=== PATIENT | male | born 2000 | race African-American/Black ===

== ENCOUNTER 2023-03-16 13:41 | Outpatient (REF) | payer MEDICAID, SELFPAY ==
--- NOTE | ~2023-03-16 | XR_ITS ---
EXAMINATION: XR LUMBOSACRAL SPINE CLINICAL INFORMATION: Lower back pain of 2 weeks' duration. COMPARISON: None available. TECHNIQUE: AP and lateral views of the lumbar spine and lateral view of the lumbosacral junction. FINDINGS: Vertebral body heights are normal. There is a mild to moderate thoracolumbar levoscoliosis. The lumbar disc spaces are well-maintained. No acute fracture or spondylolisthesis is seen. The posterior elements are intact. The paravertebral soft tissues are unremarkable. XR/XR lumbar spine 2-3V IMPRESSION: 1. There is a mild to moderate thoracolumbar levoscoliosis. 2. The lumbar disc spaces are well-maintained. 3. No acute fracture or spondylolisthesis is seen.
== END 2023-03-16 13:42 | disposition home or self-care (01) ==
LOC: HO.HHCX 13:41
PROVIDERS: Visit Provider Emergency Medicine
DX: M54.50 Low back pain, unspecified (principal)
CPT/HCPCS: 72100

== ENCOUNTER 2023-12-27 10:11 | Outpatient (REF) | payer MEDICAID, SELFPAY ==
--- NOTE | ~2023-12-27 | US_ITS ---
EXAMINATION: US RETROPERITONEAL LIMITED (RENAL ONLY) CLINICAL INFORMATION: Congenital condition. Monitor for cysts. COMPARISON: Ultrasound abdomen complete 06/19/2019. Renal ultrasound 12/01/2016. TECHNIQUE: Real-time imaging of the kidneys. FINDINGS: RIGHT KIDNEY: 13.2 x 5.8 x 6.2 cm (SAG x AP x TRV). The kidney is normal in size, contour, and echogenicity. Renal cortical thickness is normal. No renal calculi or focal parenchymal lesions. Question mild hydronephrosis. LEFT KIDNEY: 12.7 x 5.9 x 5.6 cm (SAG x AP x TRV). The kidney is normal in size, contour, and echogenicity. Renal cortical thickness is normal. No renal calculi or focal parenchymal lesions. Question mild hydronephrosis. US/US renal BI IMPRESSION: No renal cystic disease. Question mild bilateral hydronephrosis.
== END 2023-12-27 10:12 | disposition home or self-care (01) ==
LOC: HO.US 10:11
PROVIDERS: PCP Nurse Practitioner Primary Care; Visit Provider Nurse Practitioner Primary Care
DX: Q87.83 Bardet-Biedl syndrome (principal)
CPT/HCPCS: 76775

== ENCOUNTER 2024-03-03 14:51 | Outpatient (REF) | payer MEDICAID, SELFPAY ==
[2024-03-03 17:01] LABS: Anion Gap 20 (12-20); Blood Urea Nitrogen 14 mg/dL (9-16); Calcium 10.7 mg/dL (8.4-10.2); Carbon Dioxide 23 mmol/L (22-29); Chloride 98 mmol/L (96-108); Estimated Glomerular Filt Rate > 60; Glucose Random 213 mg/dL (60-115); Potassium 4.2 mmol/L (3.3-5.1); Sodium 137 mmol/L (135-145)
[2024-03-03 17:03] LABS: Creatinine Urine 50.09 mg/dL; Microalbumin Urine < 5.0 mg/L
== END 2024-03-03 14:52 | disposition home or self-care (01) ==
LOC: HO.HHCL 14:51
PROVIDERS: Visit Provider Nurse Practitioner Primary Care
DX: Q87.83 Bardet-Biedl syndrome (principal); I10 Essential (primary) hypertension
CPT/HCPCS: 36415; 80048; 82043; 82570

== ENCOUNTER 2024-05-08 15:05 | Outpatient (REF) | payer MEDICAID, SELFPAY ==
--- NOTE | ~2024-05-08 | CT_ITS ---
STUDY PERFORMED: CTA ABDOMEN WITHOUT AND WITH CONTRAST HISTORY: Past medical history of Bardet-Biedl syndrome DESCRIPTION: Routine abdomen CTA protocol with contrast was performed. 80 mL of Omnipaque 350 was administered. 3D POSTPROCESSING: Multiple 3-D angiographic images were processed from the initial data set by the manager imaging at the modality workstation under concurrent physician supervision. DOSE LOWERING TECHNIQUES: This CT examination was performed using dose optimization techniques as appropriate, variously including the following: - Automated exposure control - Adjustment of mA and/or kV according to patient size (this includes techniques or standardized protocols for targeted exams where dose is matched to indication/reason for exam; i.e. extremities or head) - Use of iterative reconstruction technique DLP: 318 mGycm. COMPARISON: Renal ultrasound from 12/27/2023 FINDINGS: VASCULAR: ABDOMINAL AORTA: Normal caliber and widely patent. No evidence of aneurysm or wall thickening. Visualized iliac arteries are normal in caliber and patent CELIOMESENTERIC ARTERIES: Celiac, superior mesenteric and inferior mesenteric arteries are patent. No evidence of aneurysm, vessel irregularity. RENAL ARTERIES: There is a single left renal artery and 2 right renal arteries which are widely patent and normal caliber. No evidence of aneurysm or vessel irregularity.. NONVASCULAR: Lung Bases: The visualized lung bases are unremarkable. Liver, Gallbladder and Biliary Tree: Liver is decreased in density consistent with severe hepatic steatosis. The gallbladder is unremarkable with no evidence of radiopaque gallstones, gallbladder wall thickening, or obvious pericholecystic inflammatory changes. Pancreas: Unremarkable. Spleen: Unremarkable. Adrenal Glands: Unremarkable. Kidneys and Ureters: The kidneys are normal in size, shape, and attenuation. No hydronephrosis, hydroureter, or calculi seen. No perinephric stranding. No renal cysts are seen. Gastrointestinal Tract: The visualized small and large bowel are unremarkable. The appendix is unremarkable. Abdominal Wall: No significant hernia is appreciated. Lymph Nodes: Normal. Osseous Structures: Unremarkable. CT/CT angio abdomen IMPRESSION: 1. Normal CTA of the abdomen. No evidence of aneurysm or vessel irregularity. 2. Severe hepatic steatosis.
[2024-05-08] MEDS: iohexoL 350 MG/ML 100 ML INFUS..BTL 80 ML IV (16:04)
== END 2024-05-08 15:06 | disposition home or self-care (01) ==
LOC: HO.CT 15:05
PROVIDERS: PCP Nurse Practitioner Primary Care; Visit Provider Nurse Practitioner Primary Care
DX: Q87.83 Bardet-Biedl syndrome (principal)
CPT/HCPCS: 74175; Q9967

== ENCOUNTER 2024-05-30 15:59 | Outpatient (REF) | payer MEDICAID, SELFPAY ==
[2024-05-30 16:14] LABS: Appearance Urine Clear; Color Urine Yellow; Glucose Urine UA >=1000 mg/dL (Negative); Leukocyte Esterase Urine Small (1+) (Negative); Nitrite Urine Negative (Negative); Specific Gravity - Urine >= 1.030 (1.005-1.025); UMIC TRIGGER UA YES; Urine Blood Negative (Negative); Urine Ketones Trace mg/dL (Negative); Urine Protein Negative (Neg-Trace)
[2024-05-30 16:17] LABS: Bacteria Urine None Seen (None Seen); Hyaline Casts Urine 0-2 /LPF (0-2); RBC Urine 0-2 /HPF (0-2); Squamous Epithelial Cell Urine 0-2 /HPF (0-2)
== END 2024-05-30 16:00 | disposition home or self-care (01) ==
LOC: HO.HHCLNP 15:59
PROVIDERS: Visit Provider Nurse Practitioner Primary Care
DX: M54.50 Low back pain, unspecified (principal)
CPT/HCPCS: 81001

== ENCOUNTER 2025-04-28 23:48 | Emergency (ER) | payer MEDICAID, SELFPAY ==
[2025-04-28 23:55] VITALS: BP 153/85; PULSE 90; RESP 16; TEMP 36.4; O2SAT 94; BMI 41.6
--- OUTSIDE RECORDS SUMMARY | 2025-04-29 01:16 | XMS_ITS | Encounter Summary ---
Author Organization Formerly [facility] Address [address] [place] [id number] Phone Care Team Providers Care Research Director Name Role Phone Pcp, Unknown Primary Care Provider Unavailsalvador e Khushboo Choudhury March DDS Unavailable [phone] Encounter Details Date Type Department Care Team (Late st Contact Info) Description 11/16/2024 Procedure Pass [facility] [address] [place] [id number] Social History Tobacco Use Types Packs/Day Years Used Date Smoking Tobacco: Never Smokeless Tobacco: Never Alcohol Use Standard Drinks/Week Comments Never 0 (1 standard drink = 0.6 oz pur e alcohol) Education Answer Date Recorded Are you interested in more education? Not on maximilian e 02/25/2024 Are you concerned about learning? Not on file 02/25/2024 No 02/25/2024 No 02/25/2024 Digital Access Answer Date Recorded No 02/25/2024 No 02/25/2024 Reliable internet access at home? Not on file 02/25/2024 Device with a working camera? Not on file Sex and Gender Information Value Date Recorded Sex Assigned at Not on file Legal Sex Male 9:10 AM EDT Gender Identity Not on file Sexual Orientation Not on file documented as of this encounter Plan of Treatment Not on file documented as of this encounter Visit Diagnoses Not on filedocumented in this encounter Care Teams Research Director Relationship Specialty Start Date End Date Pcp, Unknown PCP - General 02/24/24 Khushboo Choudhury March, DDS [address] [place] [phone] [email or web address] councilor 02/25/24 documented as of this encounter Additional Source Comments The information contained in this document represents components of the legal health record. It is not the complete legal health record.[facility]ly [facility]
--- OUTSIDE RECORDS SUMMARY | 2025-04-29 01:16 | XMS_ITS | Clinical Summary ---
Author Organization [address] [facility] Address [address] [place] [address] Phone Care Team Providers Care Waste Transportation Technician Name Role Phone Lidia Corona NP Primary Care Provider [phone] Allergies No known active allergies Encounters Date Type Department Care Team Description 03/12/2025 2:45 PM EDT Consult Orthopedic Surgery [place] [address] [phone] Jose Guadalupe Archuleta DPM Ingrowing nail (Primary Dx); Type 2 diabetes mellitus with other specified complication (CMS/HCC V24, CMS/HCC V28) from Last 3 Months Social History Tobacco Use Types Packs/Day Years Used Date Smoking Tobacco: Never Smokeless Tobacco: Never Sex and Gender Information Value Date Recorded Sex Assigned at Not on file Legal Sex Male 2:33 PM EST Gender Identity Not on file Sexual Orientation Not on file Obstetrics History Plan of Treatment Upcoming Encounters Date Type Department Care Team ([facility] st Contact Info) Description 06/18/2025 1:15 PM EDT Office Visit Orthopedic [place] [phone] [phone] Jose Guadalupe Archuleta DPM [address] [phone] Health Maintenance Due Date Last Done Comments Diabetes: Annual GFR (Glomerular Filtration Rate) 2002 Diabetes: Annual Foot Exam 2012 Diabetes: Annual Retina Eye Exam 2012 COVID-19 Vaccine ( season) 2024 10/19/2021, 02/26/2021, 01/29/2021 Depression Screening 10/11/2024 Cholesterol Screening (Lipid Panel) 12/28/2024 Diabetes: Annual Urine Albumin-Creatinine Ratio (uACR) 12/28/2024 HIV Screening 12/28/2024 Hepatitis C Screening 12/28/2024 Social Influencers of Health Screening 12/28/2024 Hypertension/CHF/CAD Annual BMP Blood Test 03/12/2025 Diabetes: Blood Sugar Control Test (HGBA1C) 06/07/2025 12/08/2024 Influenza Vaccine (#1) 2025 , 09/15/2018, 09/08/2017, Additional history exists DTaP,Tdap,and Td Vaccines (8 - Td or Tdap) 08/30/2034 08/30/2024, 12/29/2013, 06/28/2006, Additional history exists Hepatitis B Vaccines Completed 03/30/2003, 2002, 2002 HIB Vaccines Completed 10/17/2003, 12/10, 2002, Additional history exists IPV Vaccines Completed 06/28/2006, 06/12, 2002, Additional history exists MMR Vaccines Completed 06/28/2006, 07/04/2003 Varicella Vaccines Completed 12/23/2012, 06/03/2004 HPV Vaccines Completed 06/01/2014, 02/09, 12/29/2013 Hepatitis A Vaccines Completed 09/15/2018, 08/22/20 Meningococcal ACWY Vaccine Completed 09/15/2018, Pneumococcal Vaccine: Pediatrics (0 to 5 Years) and At-Risk Patients (6 to 49 Years) Completed 07/16/2022, 06/16/2022, 2002, Additional history exists Meningococcal B Vaccine Completed 01/22/20, 07/16/2022, 06/16/2022 RSV Immunization Patients Under 20 months Aged Out No longer eligible based on patient's age to complete this topic Insurance MEDICAID - [place] Care Teams Waste Transportation Technician Relationship Specialty Start Date End Date Lidia Corona NP [address] [place] [phone] PCP - General 12/28/24
--- OUTSIDE RECORDS SUMMARY | 2025-04-29 01:16 | XMS_ITS | Encounter Summary ---
Author Organization [facility] Address [address] [place] [address] [address] [place] [address] Care Team Providers Care Supervisor Customer Services Name Role Phone Lidia Corona Primary Care Provider [phone] Reason for Visit * Reason Onset Date Comments Med Refill 11/08/2023 Encounter Details Date Type Department Care Team (Late st Contact Info) Description 11/08/2023 Telephone [facility] [address] [place], [place] [phone] Lidia Corona ANP [address] [place] [address] Med Refill Social History Tobacco Use Types Packs/Day Years Used Date Smoking Tobacco: Never Smokeless Tobacco: Never Sex and Gender Information Value Date Recorded Sex Assigned at Male 08/10/2022 10:17 AM EDT Legal Sex Male 10:17 AM EDT Gender Identity Male 08/10/2022 10:17 AM EDT Sexual Orientation Straight 08/10/2022 10 :17 AM EDT documented as of this encounter Miscellaneous Notes * Telephone Encounter - Shivani Alejandre LPN - 11/08/2023 12:49 PM EST Medication was sent to [facility] on 07/27/23 #[phone] with 1 refill. * Telephone Encounter - Zita Lee - 11/08/2023 12:35 PM EST TC from pt requesting medication refill. Medications needing refill : lisinopril-hydroCHLOROthiazide 10-12.5 MG tablet To be sent to: [facility]-[address] - [address] [place], [place] [address] documented in this encounter Plan of Treatment Upcoming Encounters Date Type Department Care Team (Late st Contact Info) Description 06/22/2025 1:45 PM EDT Office Visit [facility] [address] [place] [address] Lidia Corona ANP [address] [place] [address] documented as of this encounter Visit Diagnoses Not on filedocumented in this encounter Care Teams Supervisor Customer Services Relationship Specialty Start Date End Date Lidia Corona ANP [address] [place] [id number] PCP - General Family Medicine 08/05/23 documented as of this encounter
--- OUTSIDE RECORDS SUMMARY | 2025-04-29 01:16 | XMS_ITS | Clinical Summary ---
Author Organization [facility] Address [address] [place] [address] Phone Care Team Providers Care Crossing Flagman Name Role Phone Anthony Brewer MD Primary Care Provider [phone] Mahnaz Palencia Unavailable [phone] [place] [address] Unavailable [phone] Medications albuterol (ProAir RespiClick) 90 mcg/act breath-activate d inhaler Dose Amount: 2 puff, INH, Q4hr, PRN as needed for shortness of breath or wheezing, Entered: 03/18/16 11:39:25 EDT 6 Active lisinopriL-hydr ochlorothiazide 10-12.5 mg tablet tab, PO, daily, Entered: 02/24/18 9:30:14 EDT 8 Active insulin degludec (Tresiba FlexTouch U-100) 100 unit/mL (3 mL) pen Dose: 50 unit, Subcutaneous, daily, Special Instructions: at night, Entered: 02/18/18 11:34:06 EDT 8 Active omega-3 acid ethyl esters (Lovaza) 1 gram capsule Dose: 2,000 mg, Dose Amount: 2 cap, PO, daily, Entered: 03/20/16 8:31:35 EDT 6 Active polyethylene glycol 3350 (MIRALAX ORAL) Dose: 17 g, PO, daily, Entered: 01/23/16 13:18:50 EDT 6 Active Social History Tobacco Use Types Packs/Day Years Used Date Smoking Tobacco: Never Assessed Sex and Gender Information Value Date Recorded Sex Assigned at Not on file Legal Sex Male 10:15 PM EDT Gender Identity Not on file Sexual Orientation Not on file Last Filed Vital Signs Vital Sign Reading Time Taken Comments Blood Pressure - - Pulse - - Temperature - - Respiratory Rate - - Oxygen Saturation - - Inhaled Oxygen Concentration - - Weight 133 kg (292 lb 12.3 oz) 11/30/2018 2:24 P M EST Height 173.3 cm (5' 8.23 ) 08/02/2018 12:47 PM E DT Body Mass Index - - Plan of Treatment Not on file Care Teams Crossing Flagman Relationship Specialty Start Date End Date Anthony Brewer MD [address] [place] [address] PCP - General 06/01/18 Mahnaz Palencia [address] [place] [address] PCP - Clinical PCP 01/24/16 [facility] [address] [place] [address] PCP - Insurance PCP 02/02/18
[2025-04-29 02:28] LABS: MANUAL DIFF FLAG NO
[2025-04-29 02:29] LABS: Hematocrit 43.8 % (42.0-52.0); Hemoglobin 14.7 g/dl (14.0-18.0); Imm Gran Abs Auto 0.01 X10*3/uL (0.00-0.03); Imm Gran Pct Auto 0.2 % (0.0-0.4); Lymphocytes Absolute Auto 1.6 X10*3/uL (1.2-4.9); Mean Corpuscular HGB Conc 33.6 g/dl (31.0-36.0); Mean Corpuscular Hemoglobin 27.5 pg (27.0-33.0); Mean Corpuscular Volume 82.0 fL (80.0-98.0); NRBC Abs Auto 0.000 X10*3/uL (0.0-0.012); NRBC Pct Auto 0.0 /100WBC (0.0-0.2); Platelet Count 260 X10*3/uL (160-400); Red Blood Count 5.34 X10*6/uL (4.60-5.80); White Blood Count 6.0 X10*3/uL (4.8-10.8)
[2025-04-29 02:36] VITALS: BP 123/62; PULSE 99; RESP 16; TEMP 36.7; O2SAT 93
[2025-04-29 02:47] LABS: Alanine Aminotransferase 120 U/L (0-40); Albumin Level 4.5 g/dL (3.5-5.0); Alkaline Phosphatase 73 U/L (39-117); Anion Gap 16 (12-20); Aspartate Amino Transferase 47 U/L (5-37); Blood Urea Nitrogen 13 mg/dL (9-16); Calcium 9.4 mg/dL (8.4-10.2); Carbon Dioxide 26 mmol/L (22-29); Chloride 102 mmol/L (96-108); Creatinine Clr Calc Pharmacy 221.0; Estimated Glomerular Filt Rate > 60; Lipase 26 U/L (8-78); Potassium 4.0 mmol/L (3.3-5.1); Sodium 140 mmol/L (135-145); Total Protein 7.0 g/dL (6.5-8.0)
--- NOTE | 2025-04-29 03:44 | ED.DIZZY ---
HPI - Dizziness General Chief Complaint: Dizziness Stated Complaint: dizzy/ vomiting Time Seen by Provider: 04/29/25 03:43 Source: patient and family (Mother) Mode of arrival: ambulatory Limitations: no limitations History of Present Illness ED Provider: Dr. Deon Brush HPI Narrative: 24-year-old male with a history of special needs, diabetes mellitus, hypertension who presents emergency department for evaluation of sudden onset of room spinning dizziness. Patient is watching television at 22:00 hours when he had a sudden onset of room spinning he states that the dizziness resolves if he lies still. The dizziness was associated with nausea two episodes of vomiting. This is 1st episode of dizziness. He denied chest pain, shortness of breath, abdominal pain, weakness, numbness, change in his vision Related Data Previous Rx's ?Medication ?Instructions ?Recorded meclizine 25 mg tablet (Dramamine 25 mg PO TID PRN dizziness #20 tabs 04/29/25 Less Drowsy) ondansetron 4 mg disintegrating 4 mg PO Q6-8H PRN nausea and 04/29/25 tablet vomiting #14 tabs Allergies Allergy/AdvReac Type Severity Reaction Status Date / Time No Known Allergies Allergy Verified 04/28/25 23:57 Review of Systems Review of Systems: Yes all other systems are reviewed and are negative [facility] Past Medical History [facility] Narrative: Social history: He denies tobacco, alcohol and drug use Social History Social History Smoked in Last 30 Days: No Use of substances other than those prescribed or required for medical reasons: No Advance Directives: No Advance Directives Information Provided: Yes Physical Exam Vital Signs: Vital Signs: Last Vital Signs Temp 98.3 F 04/29/25 04:50 Pulse 90 04/29/25 04:50 Resp 16 04/29/25 04:50 BP 131/72 04/29/25 04:50 Pulse Ox 95 04/29/25 04:50 O2 Del Method Room Air 04/29/25 04:50 BMI result Body Mass Index 41.6 vital signs were normal Exam: General: Awake, alert in no distress Head: Normocephalic, atraumatic EENT: PERRL, patient has strabismus with a in his left eye deviating laterally, positive nystagmus Lids normal, sclera normal, conjunctiva normal, nose normal , ears normal, throat without erythema or exudates Neck: Supple, no adenopathy Lung: breath sounds symmetric, no wheezing, rales or rhonchi Chest: symmetric movement, nontender Heart: regular rate and rhythm, normal S1, S2 no murmurs or rubs Abdomen: soft, non-tender, nondistended, normal bowel sounds Back: no vertebral tenderness, no CVAT Extremities: no deformities, moves all extremities symmetrically Neuro: General: Awake, alert, oriented, normal speech Cranial nerves: Cranial nerves intact Strength: Moves all extremities symmetrically, strength 5/5 Cerebellar: Good lerzqj-jf-swpu-to-finger, good rapid finger movement, normal heel to deng Psych: Pleasant, cooperative Medications Administered Discontinued Medications Generic Name Dose Route Start Last Admin Trade Name Freq PRN Reason Stop Dose Admin Meclizine HCl 25 mg 04/29/25 03:56 04/29/25 04:06 Meclizine Hcl 25 Mg Tablet PO 04/29/25 03:57 25 mg ONCE STA Administration Ondansetron HCl 4 mg 04/29/25 03:56 04/29/25 04:06 Ondansetron Odt 4 Mg Tab.Rapdis TRANSLINGU 04/29/25 03:57 4 mg ONCE STA Administration Medical Decision Making Medical Decision Making MDM Narrative: 24-year-old male with a history of special needs, diabetes mellitus, hypertension who presents emergency department for evaluation of sudden onset of room spinning dizziness. Patient is watching television at 22:00 hours when he had a sudden onset of room spinning he states that the dizziness resolves if he lies still. The dizziness was associated with nausea with 2 episodes of vomiting. This is 1st episode of dizziness. He denied chest pain, shortness of breath, abdominal pain, weakness, numbness, change in his vision. Vital signs were normal. Physical examination revealed nystagmus and dizziness with position change. Neurologic exam was nonfocal. Differential diagnosis: Includes but is not limited to stroke, benign positional vertigo, anemia, electrolyte abnormalities Course: my independent interpretation patient's laboratory evaluation is as follows: CBC was normal. Glucose elevated 195. AST and ALT elevated 47 and .120 given the patient's presentation symptoms and physical exam, patient most likely has benign positional vertigo. The patient is treated with meclizine 25 mg orally and Zofran 4 mg ODT I did discuss this diagnosis and treatment with the patient and the patient's mother. The patient does have diabetes and had an elevated glucose which was not significant. Patient did have mild elevations in his AST and ALT of unclear significance or cause. I did discuss this with the patient's mother advised her to make a follow-up appointment for her son did get repeat liver tests in 2-4 weeks and for possible further workup. the mother and patient was given printed and verbal instructions and the patient was discharged home in the care of his mother. Admission/Observation Consideration of admission/observation: Escalation of care including admission/observation considered ( Yes) Lab Data MDM Lab Attestation statement: I reviewed the patient's lab results. 04/29/25 02:25 04/29/25 02:25 Labs: Lab Results 04/29/25 Range/Units 02:25 WBC 6.0 (4.8-10.8) X10*3/uL RBC 5.34 (4.60-5.80) X10*6/uL Hgb 14.7 (14.0-18.0) g/dl Hct 43.8 (42.0-52.0) % MCV 82.0 (80.0-98.0) fL MCH 27.5 (27.0-33.0) pg MCHC 33.6 (31.0-36.0) g/dl RDW 12.5 (11.0-16.0) % Plt Count 260 (160-400) X10*3/uL MPV 9.4 (9.4-12.4) fL Immature Gran % (Auto) 0.2 (0.0-0.4) % Neut % (Auto) 64.8 (45-73) % Lymph % (Auto) 26.2 (20-40) % [place] % (Auto) 6.0 (2-11) % Eos % (Auto) 2.3 (0-4) % Baso % (Auto) 0.5 (0-2) % Lymph # (Auto) 1.6 (1.2-4.9) X10*3/uL [place] # (Auto) 0.4 (0.1-1.2) X10*3/uL Eos # (Auto) 0.1 (0.0-0.4) X10*3/uL Baso # (Auto) 0.0 (0.0-0.2) X10*3/uL Abs Immat Gran (auto) 0.01 (0.00-0.03) X10*3/uL Absolute Neuts (auto) 3.9 (2.0-8.3) x10*3/uL Absolute Nucleated RBC 0.000 (0.0-0.012) X10*3/uL Nucleated RBC % (auto) 0.0 (0.0-0.2) /100WBC Sodium 140 (135-145) mmol/L Potassium 4.0 (3.3-5.1) mmol/L Chloride 102 (96-108) mmol/L Carbon Dioxide 26 (22-29) mmol/L Anion Gap 16 (12-20) BUN 13 (9-16) mg/dL Creatinine 0.61 (0.5-1.4) mg/dL Estim Creat Clear Calc 221.0 Estimated GFR > 60 Random Glucose 195 H (60-115) mg/dL Calcium 9.4 D (8.4-10.2) mg/dL Total Bilirubin 0.2 (0.0-1.0) mg/dL AST 47 H (5-37) U/L ALT 120 H (0-40) U/L Alkaline Phosphatase 73 (39-117) U/L Total Protein 7.0 (6.5-8.0) g/dL Albumin 4.5 (3.5-5.0) g/dL Lipase 26 (8-78) U/L Independent Historian Clinical information obtained from an independent historian. History obtained from or confirmed by: Parent ( mother) Chronic Conditions Patient?s care impacted by: Diabetes Discharge Plan Discharge Clinical Impression: Benign paroxysmal positional vertigo, Nausea & vomiting Patient Disposition: Home, Self-Care Instructions: Benign Paroxysmal Positional Vertigo (ED) Additional Instructions: You had a complete blood count (CBC) and a comprehensive metabolic panel (CMP) Your glucose was elevated at 195. You had 2 liver tests which were elevated, AST 47 (normal range 5-37) and ALT 120 (normal range 47 to 120). I want you to follow up with your doctor in 2-4 weeks to have repeat test to recheck your liver tests. Your dizziness nausea and vomiting is due to benign positional vertigo (dizziness caused by the balance mechanism in your inner ear) This can last several days to several weeks. Take meclizine 25 mg pills, 1 pill 3 times a day for the next 3 days for dizziness then as needed for dizziness. ?This medication will make you sleepy. ?Do not drive or work while taking this medication. Take Zofran ODT 4 mg pills, 1 pill dissolved in your mouth every 8 hours as needed for nausea and vomiting. Continue taking medications as prescribed by your providers Follow-up with your doctor in 2 days. Please return to the emergency department if your symptoms get worse or if you develop any symptoms that are concerning to you. Prescriptions: New meclizine [Dramamine Less Drowsy] 25 mg tablet 25 mg PO TID PRN (Reason: dizziness) Qty: 20 0RF ondansetron 4 mg tablet,disintegrating 4 mg PO Q6-8H PRN (Reason: nausea and vomiting) Qty: 14 0RF Interventions: ED Discharge Assessment Last Done: 04/29/25 04:50 Discharge Date/Time: 04/29/25 04:51 Print Language: Iraqi
[2025-04-29 04:50] VITALS: BP 131/72; PULSE 90; RESP 16; TEMP 36.8; O2SAT 95
== END 2025-04-29 04:51 | disposition home or self-care (01) ==
PROVIDERS: Emergency Provider Emergency Medicine Emergency Medical Services; PCP Nurse Practitioner Primary Care
DX: H81.13 Benign paroxysmal vertigo, bilateral (principal); R11.2 Nausea with vomiting, unspecified
CPT/HCPCS: 36415; 80053; 83690; 85025; 99283; 99284

== ENCOUNTER 2025-06-22 16:10 | Outpatient (REF) | payer MEDICAID, SELFPAY ==
--- OUTSIDE RECORDS SUMMARY | 2025-06-22 13:45 | XMS_ITS | Encounter Summary ---
Author Organization [employer] Address [address] [facility] 7t [place] [address] Care Team Providers Care Heater Operator Helper Name Role Phone Lidia Corona Primary Care Provider [phone] Reason for Visit * Reason Comments Follow-up Encounter Details Date Type Department Care Team (Latest Contact Info) Description 06/22/2025 1:45 PM EDT Office Visit [facility] [address] [place], [place] [phone] Lidia Corona ANP [address] [place], [place] [phone] Hepatic steatosis (Primary Dx); Dietary counseling; Exercise counseling; Bardet-Biedl syndrome; Primary hypertension; Type 2 diabetes mellitus with hyperlipidemia (CMS/HCC) (CMS/HCC) Social History Tobacco Use Types Packs/Day Years Used Date Smoking Tobacco: Never Passive Smoke Exposure: Never Smokeless Tobacco: Never Alcohol Use Standard Drinks/Week Comments Never 0 (1 standard drink = 0.6 oz pur e alcohol) Depression Answer Date Recorded Patient Health Questionnaire-9 Score 11 12/08/2024 Patient Health Questionnaire-9 Score 11 12/08/2024 Last PHQ-9: Questionnaire Data Not on file 0 12/08/2024 Housing Stability Answer Date Recorded What is your housing situation today? I have patricia srinivasan 12/08/[address] you li ve. Do you have problems with any of the following? None of the above 12/08/2024 Food Insecurity Answer Date Recorded Within the past 12 months, y ou worried that your food would run out before you got money to buy more: Never True 12/08/2024 Within the past 12 months,th e food you bought just didn't last and you didn't have enough money to get more: Never True Transportation Answer Date Recorded In the past 12 months, has l ack of transportation kept you from medical appts, meetings, work or from getting things needed for daily living? No 12/08/2024 Utilities Answer Date Recorded In the past 12 months, has t he electric, gas, oil or water company threatened to shut off services in your home? No 12/08/2024 Depression Answer Date Recorded Patient Health Questionnaire-2 Score 0 12/08/2024 Internet Access Answer Date Recorded Internet Access Q1 Yes 12/08/2024 Internet Access Q2 Not on file 12/08/2024 Sex and Gender Information Value Date Recorded Sex Assigned at Male 08/10/2022 10:17 AM EDT Legal Sex Male 10:17 AM EDT Gender Identity Male 08/10/2022 10:17 AM EDT Sexual Orientation Straight 08/10/2022 10 :17 AM EDT documented as of this encounter Last Filed Vital Signs Vital Sign Reading Time Taken Comments Blood Pressure 120/60 06/22/2025 1:52 PM EDT Pulse 98 06/22/2025 1:52 PM EDT Temperature 36.7 C (98 F) 06/22/2025 1:52 PM EDT Respiratory Rate 20 06/22/2025 1:52 PM EDT Oxygen Saturation 98% 06/22/2025 1:52 PM EDT Inhaled Oxygen Concentration - - Weight 122 kg (268 lb 3.2 oz) 06/22/2025 1:52 PM EDT Height 174 cm (5' 8.5 ) 06/22/2025 1:52 PM EDT Body Mass Index 40.19 06/22/2025 1:52 PM EDT documented in this encounter Plan of Treatment Scheduled Orders Name Type Priority Associated Diagnoses Orde r Schedule Hepatic Function Panel Lab Routine Hepatic steatosis Expected: 06/22/2025 (Approximate), Expires: 06/22/2026 documented as of this encounter Procedures Procedure Name Priority Date/Time Associated Diagnosis Comments ALBUMIN, RANDOM URINE W/CREATININE Routine 06/22/2025 2:20 PM EDT Primary hypertension Type 2 diabetes mellitus with hyperlipidemia (CMS/HCC) (CMS/HCC) HEMOGLOBIN A1C Routine 06/22/2025 documented in this encounter Results * Albumin, Random Urine W/Creatinine (06/22/2025 2:20 PM EDT) Creatinine, Urine 24.34 mg/dL [facility] Microalbumin Urine <5.0 mg/L H [facility] Microalbum Creatinine Ratio Ur TNP <30 ug/mg cr [facility] Comment:Unable to calculate albumin/creatinine ratio due to lowmicroalbumin or creatinine result. Urine (Urine, Random) 06/22/2025 2:20 PM EDT 06/22/2025 4:11 PM EDT us Lidia ISABEL LAB URINE ORDERABLES Final Resul t [facility] [address] [place] [address] [phone] * (ABNORMAL) Hemoglobin A1c (06/22/2025) Hemoglobin A1c 10.0(H) Blood Venous blood specimen / Unknown Historical Provider LAB BLOOD ORDERABLES Liliya l Result documented in this encounter Visit Diagnoses Diagnosis Hepatic steatosis- Primary Other chronic nonalcoholic liver disease Dietary counseling Dietary surveillance and counseling Exercise counseling Bardet-Biedl syndrome Other specified congenital anomalies, so described Primary hypertension Unspecified essential hypertension Type 2 diabetes mellitus with hyperlipidemia (CMS/HCC) (CMS/HCC) documented in this encounter Additional Health Concerns Assessment Noted Time PHQ-9 Depression Total Score: 11 025 2:59 PM EST documented as of this encounter Care Teams Heater Operator Helper Relationship Specialty Start Date End Date Lidia Corona ANP [address] [place] [id number] PCP - General Family Medicine 08/05/23 documented as of this encounter
--- OUTSIDE RECORDS SUMMARY | 2025-06-22 17:50 | XMS_ITS | Encounter Summary ---
Author Organization [facility] Address [address] [facility] [address] [place] [phone] Phone Care Team Providers Care Security Intern Name Role Phone Pcp, Unknown Primary Care Provider Khushboo Dunlap March DDS Unavailable [phone] Encounter Details Date Type Department Care Team (Late st Contact Info) Description 01/18/2025 Procedure Pass [facility]PT [address] [place] [phone] Social History Tobacco Use Types Packs/Day Years [...] with a working camera? Not on file Intimate Partner Violence Answer Date R ecorded Are you denied basic needs s uch as food, clothing, or medical care? Patient unable to respond 01/18/2025 In the past 12 months have y ou been in a relationship with a person who hurts, threatens, or tries to control you? Patient unable to respond 01/18/2025 Are you denied basic needs s uch as food, clothing, or medical care? Patient unable to respond 01/18/2025 In the past 12 months have y ou been in a relationship with a person who hurts, threatens, or tries to control you? Patient unable to respond 01/18/2025 Sex and Gender Information Value Date Recorded Sex Assigned at Not on file Legal Sex Male 9:10 AM EDT Gender Identity Not on file Sexual Orientation Not on file documented as of this encounter Plan of Treatment Not on file documented as of this encounter Visit Diagnoses Not on filedocumented in this encounter Care Teams Security Intern Relationship Specialty Start Date End Date Pcp, Unknown PCP - General 02/24/24 Khushboo Choudhury March, DDS [address] [place] [phone] [email or web address] redeye gunner 02/25/24 documented as of this encounter Additional Source Comments The information contained in this document represents components of the legal health record. It is not the complete legal health record.[facility]
--- OUTSIDE RECORDS SUMMARY | 2025-06-22 17:50 | XMS_ITS | Clinical Summary ---
Author Organization [facility] Address [address] [place] [address] Phone Care Team Providers Care Latin American Studies Director Name Role Phone Lidia Corona NP Primary Care Provider [phone] Allergies No known active allergies Social History Tobacco Use Types Packs/Day Years Used Date Smoking Tobacco: Never Smokeless Tobacco: Never Sex and Gender Information Value Date Recorded Sex Assigned at Not on file Legal Sex Male 2:33 PM EST Gender Identity Not on file Sexual Orientation Not on file Obstetrics History Plan of Treatment Health Maintenance Due Date Last Done Comments Diabetes: Annual GFR (Glomerular Filtration Rate) 2002 Diabetes: Annual Foot Exam 2012 Diabetes: Annual Retina Eye Exam 2012 Depression Screening 10/11/2024 Cholesterol Screening (Lipid Panel) 12/28/2024 Diabetes: Annual Urine Albumin-Creatinine Ratio (uACR) 12/28/2024 HIV Screening 12/28/2024 Hepatitis C Screening 12/28/2024 Social Influencers of Health Screening 12/28/2024 Hypertension/CHF/CAD Annual BMP Blood Test 03/12/2025 Diabetes: Blood Sugar Control Test (HGBA1C) 06/07/2025 12/08/2024 COVID-19 Vaccine ( season) 2025 10/19/2021, 02/26/2021, 01/29/2021 Influenza Vaccine (#1) 2025 , 09/15/2018, 09/08/2017, [...] topic Insurance MEDICAID - [place] Care Teams Latin American Studies Director Relationship Specialty Start Date End Date Lidia Corona NP [address] [phone] PCP - General 12/28/24
--- OUTSIDE RECORDS SUMMARY | 2025-06-22 17:50 | XMS_ITS | Clinical Summary ---
Author Organization [facility] Address [address] [place] [address] Phone Care Team Providers Care Creel Selector Name Role Phone Anthony Brewer MD Primary Care Provider [phone] Mahnaz Palencia Unavailable [phone] [place] [address] Unavailable [phone] Medications albuterol (ProAir RespiClick) 90 mcg/act breath-activate [...] of Treatment Not on file Care Teams Creel Selector Relationship Specialty Start Date End Date Anthony Brewer MD [address] [place] [address] PCP - General 06/01/18 Mahnaz Palencia [address] [place] [address] PCP - Clinical PCP 01/24/16 [facility] [address] [place] [address] PCP - Insurance PCP 02/02/18
--- OUTSIDE RECORDS SUMMARY | 2025-06-22 17:50 | XMS_ITS | Clinical Summary ---
Author Organization [facility] Address [address] [facility] [address] [place] [address] Phone Care Team Providers Care Silverware Buffing Machine Operator Name Role Phone Pcp, Unknown Primary Care Provider Khushboo Dunlap March DDS Unavailable [phone] Allergies No known active allergies Medications alcohol (ALCOHOL PADS) PadM See Instructions, # 60 each, Refills 11, Tot. Refills 11, Maintenance, diabetes 2 times/daily, 10/14/23 14:29:00 EST, Compound, 174, cm, 09/17/23 15:18:00 EST, Height, 121, kg, 09/17/23 15:18:00 EST, Dry Weight 4 Active GLUCOSE BLOOD test strip USE DIRECTED TO TEST BLOOD SUGAR THREE TIMES A DAY 4 Active FREESTYLE PRECISION VIOLET STRIPS Strp strips USE DIRECTED TO TEST BLOOD SUGAR THREE TIMES A DAY 4 Active TRULICITY 0.75 mg/0.5 mL subcutaneous injection Active SYNJARDY 5-1,000 mg per tablet Take 1 tablet by mouth 2 (two) times a day with meals. Active FREESTYLE MICAH 2 SENSOR kit USE DIRECTED TO MONITOR BLOOD SUGARS, CHANGE EVERY 14 DAYS. 4 Active lisinopril-hydroC HLOROthiazide (PRINZIDE,ZESTORE TIC) 10-12.5 mg per tablet Take 1 tablet by mouth every morning. 4 Active vitamin E 45 mg (100 unit) Cap capsule Take 100 Units by mouth daily. Active chlorhexidine (PERIDEX) 0.12 % solution Use as directed 15 mL in the mouth or throat 2 (two) times a day. 120 mL Active oxyCODONE 5 MG immediate release tablet Take 1-2 tablets (5-10 mg total) by mouth every 4 (four) hours as needed for pain (specific location in comments). Partial fill ok 8 tablet Active Social History Tobacco Use Types Packs/Day Years Used Date Smoking Tobacco: Never Smokeless Tobacco: Never Tobacco Cessation:Counseling Given: Not Answered Alcohol Use Standard Drinks/Week Comments Never 0 [...] Sign Reading Time Taken Comments Blood Pressure 124/71 01/18/2025 6:45 PM EDT Pulse 84 01/18/2025 6:15 PM EDT Temperature 36.3 C (97.4 F) 01/18/2025 5:45 PM EDT Respiratory Rate 18 01/18/2025 5:45 PM EDT Oxygen Saturation 95% 01/18/2025 6:45 PM EDT Inhaled Oxygen Concentration - - Weight 118.4 kg (261 lb) 01/18/2025 2:37 PM EDT Height 175.3 cm (5' 9 ) 01/18/2025 2:37 PM EDT Body Mass Index 38.54 01/18/2025 2:37 PM EDT Plan of Treatment Health Maintenance Due Date Last Done Comments CREATININE LEVEL 2002 POTASSIUM LEVEL 2002 DEPRESSION SCREENING 2014 HEPATITIS C SCREENING 2020 HIV ONE-TIME SCREENING (18-65 YEARS) 2020 INFLUENZA VACCINE (#1) 2025 , 09/15/2018, 09/08/2017, Additional history exists COVID-19 VACCINE ( season) 2025 10/19/2021, 02/26/2021, 01/29/2021 SMOKING Hx and SMOKELESS TOBACCO SCREENING 01/18/2026 01/18/2025 Adult Td,Tdap Booster 08/30/2034 08/30/2024, 014 HIB VACCINES Completed 10/17/2003, 12/10, 2002, Additional history exists HPV VACCINES Completed 06/01/2014, 02/09, 12/29/2013 HEPATITIS A VACCINES Completed 09/15/2018, 08/22/20 15 MENINGOCOCCAL VACCINES (ACWY) Completed 09/15/2018, 12/29/2013 PNEUMOCOCCAL VACCINES (0-49 years) Aged Out 07/16/2022, 06/16/2022, 2002, Additional history exists No longer eligible based on patient's age to complete this topic MENINGOCOCCAL VACCINES (B) Completed 01/21, 07/16/2022, 06/16/2022 Medical Devices Not on file Insurance [facility] [address] [address] [place] [address] C[employer] [facility] [facility] [employer] [facility] C3 [facility] Care Teams Silverware Buffing Machine Operator Relationship Specialty Start Date End Date Pcp, Unknown PCP - General 02/24/24 Khushboo Choudhury DDS [address] [place], [place] [phone] [email or web address] gas examiner 02/25/24 Additional Source Comments The information contained in this document represents components of the legal health record. It is not the complete legal health record.[facility]
--- OUTSIDE RECORDS SUMMARY | 2025-06-22 17:50 | XMS_ITS | Encounter Summary ---
Author Organization [employer] Address [address] [facility] 7t [place] [address] Care Team Providers Care Carton Filling Machine Operator Name Role Phone Lidia Corona Primary Care Provider [phone] Reason for Visit * Reason Onset Date Comments Med Refill 11/08/2023 Encounter Details Date Type Department Care Team ([facility] st Contact Info) Description 11/08/2023 Telephone [facility] [address] [place], [place] [phone] Lidia Corona ANP [address] [place], [place] [phone] Med Refill Social History Tobacco Use Types [...] 12:49 PM EST Medication was sent to [facility] on 07/27/23 #90 with 1 refill. * Telephone Encounter - Zita Lee - 11/08/2023 12:35 PM EST TC from pt requesting medication refill. Medications needing refill : lisinopril-hydroCHLOROthiazide 10-12.5 MG tablet To be sent to: [facility]-[address] - [address] [place] [address] documented in this encounter Plan of Treatment Not on file documented as of this encounter Visit Diagnoses Not on filedocumented in this encounter Care Teams Carton Filling Machine Operator Relationship Specialty Start Date End Date Lidia Corona ANP [address] [place] [id number] PCP - General Family Medicine 08/05/23 documented as of this encounter
--- OUTSIDE RECORDS SUMMARY | 2025-06-22 17:50 | XMS_ITS | Encounter Summary ---
Author Organization [employer] Address [address] [facility] 7t [place] [address] Care Team Providers Care Stone Layout Marker Name Role Phone Lidia Corona Primary Care Provider Reason for Visit * Reason Onset Date Comments chart prep 06/21/2025 Encounter Details Date Type Department Care Team ([facility] st Contact Info) Description 06/21/2025 Telephone [facility] [address] [place], [place] [phone] Lidia Corona ANP [address] [place], [place] [phone] chart prep Social History Tobacco Use Types Packs/Day Years [...] encounter Miscellaneous Notes * Telephone Encounter - Brigid Varghese [place] - 06/21/2025 9:28 AM EDT Chart Prep Labs: done Images: not applicable Referrals: not applicable Vaccines due: Covid and Flu Screenings: eye exam and STI screening Overdue care gaps: A1c, Glucose, SBIRT, Oral health screening, and Disability screen documented in this encounter Plan of Treatment Not on file documented as of this encounter Visit Diagnoses Not on filedocumented in this encounter Additional Health Concerns Assessment Noted Time PHQ-9 Depression Total Score: 11 025 2:59 PM EST documented as of this encounter Care Teams Stone Layout Marker Relationship Specialty Start Date End Date Lidia Corona ANP [address] [place] [address] PCP - General Family Medicine 08/05/23 documented as of this encounter
--- OUTSIDE RECORDS SUMMARY | 2025-06-22 17:50 | XMS_ITS | Encounter Summary ---
Author Organization [employer] Address [address] [facility] 7t [place] [address] Care Team Providers Care Abstractor Name Role Phone Corona Lidia ISABEL Primary Care Provider [phone] Encounter Details Date Type Department Care Team (Latest Contact Info) Description 06/22/2025 Travel Social History Tobacco Use Types Packs/Day Years [...] AM EDT documented as of this encounter Plan of Treatment Not on file documented as of this encounter Visit Diagnoses Not on filedocumented in this encounter Additional Health Concerns Assessment Noted Time PHQ-9 Depression Total Score: 11 025 2:59 PM EST documented as of this encounter Care Teams Abstractor Relationship Specialty Start Date End Date Lidia Corona ANP [address] [place] [phone] PCP - General Family Medicine 08/05/23 documented as of this encounter
--- OUTSIDE RECORDS SUMMARY | 2025-06-22 17:50 | XMS_ITS | Encounter Summary ---
Author Organization [facility] Address [address] [place] [address] Phone Care Team Providers Care Tearoom Host/Hostess Name Role Phone Pcp, Unknown Primary Care Provider Unavailsalvador e Khushboo Choudhury March DDS Unavailable [phone] Encounter Details Date Type Department Care Team (Late st Contact Info) Description 11/16/2024 Procedure Pass [facility] PERIOPERATIVE DEPT [address] [place] [phone] Social History Tobacco Use Types Packs/Day Years [...] on filedocumented in this encounter Care Teams Tearoom Host/Hostess Relationship Specialty Start Date End Date Pcp, Unknown PCP - General 02/24/24 Khushboo Choudhury March, DDS [address] [place] [phone] [email or web address] cylinder loader 02/25/24 documented as of this encounter Additional Source Comments The information contained in this document represents components of the legal health record. It is not the complete legal health record.[facility]
--- OUTSIDE RECORDS SUMMARY | 2025-06-22 17:51 | XMS_ITS | Clinical Summary ---
Author Organization [employer] Address [address] [facility] [address] [place] [address] Care Team Providers Care Product Evangelist Name Role Phone Lidia Corona Primary Care Provider [phone] Allergies No known active allergies Medications * This document contains information received from the source organization and may not represent a complete record from that organization. docusate sodium (Colace) 100 MG capsule Take 100 mg by mouth 2 times daily. 2 Active sennosides (Ex-Lax) 15 mg chocolate chewable tablet chew 2 Tablets by oral route every evening 2 Active albuterol 108 (90 Base) MCG/ACT inhalerIndications :COVID-19 Inhale 2 puffs every 4 (four) hours if needed for wheezing or shortness of breath. 18 g 3 Active Alcohol Swabs padsIndications:Ty pe 2 diabetes mellitus with hyperlipidemia (CMS/HCC) (CMS/[facility]) 1 each if needed (to clean skin). 100 each 11 4 Active FREESTYLE LITE test stripIndications:T ype 2 diabetes mellitus with hyperlipidemia (CMS/HCC) (CMS/[facility]) Use to check blood sugar twice daily or more as needed 100 each 12 4 Active Blood Glucose Monitoring Suppl (FreeStyle Lite) w/Device kitIndications:Typ e 2 diabetes mellitus with hyperlipidemia (CMS/HCC) (CMS/HCC) 1 each in the morning. 1 kit 4 Active Continuous Glucose Programming Instructor (FreeStyle Ramana 2 [place]) deviceIndications: Type 2 diabetes mellitus with hyperlipidemia (CMS/HCC) (CMS/[facility]) Scan sensor every 8 hours 1 each 4 Active Continuous Glucose Sensor (FreeStyle Ramana 2 Sensor) miscIndications:Ty pe 2 diabetes mellitus with hyperlipidemia (CMS/HCC) ([facility]) Apply 1 sensor every 14 days 2 each 11 4 Active Trulicity 0.75 MG/0.5ML solution pen-injectorIndica tions:Type 2 diabetes mellitus with hyperlipidemia (CMS/HCC) (CMS/[facility]) Inject 0.75 mg under the skin 1 (one) time per week. 4 each 4 Active dulaglutide (Trulicity) 1.5 MG/0.5ML solution pen-injectorIndica tions:Type 2 diabetes mellitus with hyperlipidemia (CMS/HCC) ([facility]) Inject 1.5 mg under the skin 1 (one) time per week. Do not start before 2024. 4 each 4 Active Synjardy 5-1000 MGIndications:Type 2 diabetes mellitus with hyperlipidemia (CMS/HCC) ([facility]) Take 1 tablet by mouth with breakfast and with evening meal. 60 tablet 1 4 Active lisinopril-hydroCH LOROthiazide 10-12.5 MG tabletIndications: Type 2 diabetes mellitus with hyperlipidemia (CMS/HCC) ([facility]),Hyperten juan manuel, unspecified type TAKE 1 TABLET BY MOUTH EVERY DAY 90 tablet 1 5 Active Active Problems Problem Noted Date Diagnosed Date Anxiety 12/09/2023 Assessment & Plan (12/13/2023 8:37 AM EST): PLAN: (check all that apply) New/Additional Services needed Off-site services for Behavioral Health Integration Plan External OP therapy referral Patient Self Plan Patient to utilize skills provided in intervention , Patient to reach out to [facility] team as needed, and Patient to engage in OP therapy Depression, unspecified 12/09/2023 Type 2 diabetes mellitus with hyperlipidemia (CM S/HCC) 02/27/2018 Hyperlipidemia 02/06/2018 Hypertensive disorder 02/06/2018 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 Mild intermittent asthma 09/08/2017 Obstructive sleep apnea syndrome 11/22/2016 Intellectual functioning disability 06/20/2014 Obesity 11/21/2012 Steatosis of liver 11/21/2012 Visual impairment 11/21/2012 Encounters Date Type Department Care Team Description 06/22/2025 1:45 PM EDT Office Visit [facility] [address] [place] [phone] Lidia Corona ANP Hepatic steatosis (Primary Dx); Dietary counseling; Exercise counseling; Bardet-Biedl syndrome; Primary hypertension; Type 2 diabetes mellitus with hyperlipidemia (CMS/HCC) (CMS/HCC) 06/22/2025 Travel 06/21/[address] [phone] Lidia Corona ANP chart prep 04/05/[address] [phone] Lidia Corona ANP CHART PREP from Last 3 Months Immunizations Immunization Administration Dates Next Due DTaP 06/28/2006, 4,2002,11/02,2002 HPV, Quadrivalent 06/01/2014,02/28/2014,12/30/19 14 Hep A, ped/adol, 2 dose 09/15/2018,08/22/2015 Hep B, Adolescent or Pediatric 03/30/2003,2002,2002 Hib (HbOC) 10/17/2003, 3,2002,09/01 IPV 06/28/2006, 3,2002,09/01 Influenza injectable quadriv alent preservative free 09/15/2018,09/08/2017,08/22/2015 Influenza, Split (incl. nayeli fied surface antigen) 07/28/2013,12/23/2012 Influenza, seasonal, injecta ble, preservative free 12/08/2024 MMR 06/28/2006,07/04/2003 Meningococcal B, Recombinant 01/21/2023,07/16/20 22,06/16/2022 Meningococcal MCV4P ACYW-135 09/15/2018,12/30/19 14 Moderna Covid-19 Vaccine 12+ 01/29/2021 Pneumococcal Conjugate PCV 20 07/16/2022, 022 Pneumococcal Conjugate PCV 7 2002,11/02/19 03,2002 Tdap 08/30/2024,12/29/2013 Varicella 12/23/2012,06/03/2004 Family History Medical History Relation Name Comments bardet-biedl Other Kidney disease Paternal Grandfather Relation Name Status Comments Other Paternal Grandfather Social History Tobacco Use Types Packs/Day Years Used Date Smoking Tobacco: Never Passive Smoke Exposure: Never Smokeless Tobacco: Never Tobacco Cessation:Counseling Given: [...] Orientation Straight 08/10/2022 10 :17 AM EDT Last Filed Vital Signs Vital Sign Reading [...] Mass Index 40.19 06/22/2025 1:52 PM EDT Plan of Treatment Health Maintenance Due Date Last Done Comments Chlamydia and Gonorrhea Screening 2002 HIV Screening 2002 Lipid Panel 2002 Family Planning (PISQ) 2017 Hepatitis C Screening 2020 Diabetes: Urine Protein Screening 03/03/2025 06/22/2025, 03/03/2024 Depression Monitoring 06/07/2025 12/08/2024, 025 COVID-19 Vaccine ( season) 2025 10/19/2021, 02/26/2021, 01/29/2021 Influenza Vaccine (#1) 2025 , 09/15/2018, 09/08/2017, Additional history exists Diabetes: Hemoglobin A1C 09/21/2025 025, 12/08/2024, 08/30/2024, Additional history exists Diabetes: Foot Exam 12/08/2025 12/08/2024, 12/08/2024, 12/08/2024, Additional history exists SDOH Screening 12/08/2025 12/08/2024 Alcohol/Substance Use Screening 06/22/2026 06/22/2025 Disability Screening 06/22/2026 06/22/2025 Tobacco Screening 06/22/2026 06/22/2025 Eye Exam 05/02/2027 05/02/2025 DTaP/Tdap/Td Vaccines (8 - Td or Tdap) 08/30/2034 08/30/2024, 12/29/2013, 06/28/2006, Additional history exists Zoster Vaccines (1 of 2) 2052 RSV Patients and Patients Aged 60 years or older (1 - 1-dose 75+ series) 2077 Hepatitis B Vaccines Completed 03/30/2003, 2002, 2002 HIB Vaccines Completed 10/17/2003, 12/10, 2002, Additional history exists IPV Vaccines Completed 06/28/2006, 06/12, 2002, Additional history exists HPV Vaccines Completed 06/01/2014, 02/09, 12/29/2013 Hepatitis A Vaccines Completed 09/15/2018, 08/22/20 15 Meningococcal Vaccine Completed 09/15/2018, 014 Pneumococcal Vaccine: Pediatrics (0 to 5 Years) and At-Risk Patients (6 to 49) Years Completed 07/16/2022, 06/16/2022, 2002, Additional history exists Meningococcal B Vaccine Completed 01/22/20, 07/16/2022, 06/16/2022 RSV under 20 months Aged Out No longe r eligible based on patient's age to complete this topic Rotavirus Vaccines Aged Out No longer eligible based on patient's age to complete this topic Procedures Procedure Name Priority Date/Time Associated Diagnosis Comments ALBUMIN, RANDOM URINE W/CREATININE Routine 06/22/2025 2:20 PM EDT Primary hypertension Type 2 diabetes mellitus with hyperlipidemia ([facility]/HCC) ([facility]) HEMOGLOBIN A1C Routine 06/22/2025 LIPASE Routine 04/29/2025 2:25 AM EDT COMPREHENSIVE METABOLIC PANEL Routine 04/29/2025 2:25 AM EDT CBC WITH AUTO DIFFERENTIAL Routine 04/29/2025 2:25 AM EDT from Last 3 Months Results * Albumin, Random Urine W/Creatinine (06/22/2025 2:20 PM EDT) Creatinine, Urine 24.34 mg/dL [facility] Microalbumin Urine <5.0 mg/L [facility] Microalbum Creatinine Ratio Ur TNP <30 ug/mg cr [facility] Comment:Unable to calculate albumin/creatinine ratio due to lowmicroalbumin or creatinine result. Urine (Urine, Random) 06/22/2025 2:20 PM EDT 06/22/2025 4:11 PM EDT [facility] LAB URINE ORDERABLES Final Resul t [facility] [address] [place] [phone] * (ABNORMAL) Hemoglobin A1c (06/22/2025) Hemoglobin A1c 10.0(H) Blood Venous blood specimen / Unknown [facility] Provider LAB BLOOD ORDERABLES Liliya l Result * CBC auto differential (04/29/2025 2:25 AM EDT) White Blood Count 6.0 4.8 - 10.8 X10*3/uL [facility] Red Blood Count 5.34 4.60 - 5.80 X10*6/uL [facility] Hemoglobin 14.7 14.0 - 18.0 g/dl [facility] Hematocrit 43.8 42.0 - 52.0 % [facility] Mean Corpuscular Volume 82.0 80.0 - 98.0 fL [facility] Mean Corpuscular Hemoglobin 27.5 27.0 - 33.0 pg [facility] Mean Corpuscular HGB Conc 33.6 31.0 - 36.0 g/dl [facility] Red Cell Distribution Width 12.5 11.0 - 16.0 % [facility] Platelet Count 260 160 - 400 X10*3/uL [facility] Mean Platelet Volume 9.4 9.4 - 12.4 fL [facility] Neutrophils Percent Auto 64.8 45 - 73 % [facility] Imm Gran Pct Auto 0.2 0.0 - 0.4 % [facility] Lymphocytes Percent Auto 26.2 20 - 40 % [facility] Monocytes Percent Auto 6.0 2 - 11 % [facility] Eosinophils Percent Auto 2.3 0 - 4 % [facility] Basophils Percent Auto 0.5 0 - 2 % [facility] NRBC Pct Auto 0.0 0.0 - 0.2 /100WBC [facility] Neutrophils Absolute Auto 3.9 2.0 - 8.3 x10*3/uL [facility] Imm Gran Abs Auto 0.01 0.00 - 0.03 X10*3/uL [facility] Lymphocytes Absolute Auto 1.6 1.2 - 4.9 X10*3/uL [facility] Monocytes Absolute Auto 0.4 0.1 - 1.2 X10*3/uL [facility] Eosinophils Absolute Auto 0.1 0.0 - 0.4 X10*3/uL [facility] Basophils Absolute Auto 0.0 0.0 - 0.2 X10*3/uL [facility] NRBC Abs Auto 0.000 0.0 - 0.012 X10*3/uL [facility] 04/29/2025 2:25 AM EDT 04/29/2025 2:27 AM EDT us Generic External Data Provider LAB BLOOD ORDERAB LES Final Result Performing Organization Address City/[facility] Co de Phone Number [facility] [address] [place] [phone] * Lipase (04/29/2025 2:25 AM EDT) Lipase 26 8 - 78 U/L [facility] 04/29/2025 2:25 AM EDT 04/29/2025 2:27 AM EDT us Generic External Data Provider LAB BLOOD ORDERAB LES Final Result Performing Organization Address City/[facility] Co de Phone Number [facility] [address] [place] [phone] * (ABNORMAL) Comprehensive Metabolic Panel (04/29/2025 2:25 AM EDT) Sodium 140 135 - 145 mmol/L [facility] Potassium 4.0 3.3 - 5.1 mmol/L [facility] Chloride 102 96 - 108 mmol/L [facility] Carbon Dioxide 26 22 - 29 mmol/L [facility] Anion Gap 16 12 - 20 [facility] Urea Nitrogen (BUN) 13 9 - 16 mg/dL [facility] Creatinine, Serum 0.61 0.5 - 1.4 mg/dL [facility] Creatinine Clr Calc Pharmacy 221.0 [facility] Comment:eGFR (calculated fro m the MDRD study equation) and eCrCl(calculated from the Cockcroft-Gault equation) are based ondifferent parameters and may not yield comparable results.If eCrCl result is absurd, please check patient'sheight/weight. Estimated Glomerular Filt Rate >60 [facility] Comment:Chronic Kidney Disea se: Estimated GFR < 60 mL/min/1.30w2Ecxckm Kidney Disease: Estimated GFR < 15 mL/min/1.73m2 Glucose 195(H) 60 - 115 mg/dL [facility] Calcium 9.4 8.4 - 10.2 mg/dL [facility] Bilirubin, Total 0.2 0.0 - 1.0 mg/dL [facility] Aspartate Amino Transferase 47(H) 5 - 37 U/L [facility] Alanine Aminotransferase 120(H) 0 - 40 U/L [facility] Total Protein 7.0 6.5 - 8.0 g/dL [facility] Albumin Level 4.5 3.5 - 5.0 g/dL [facility] Alkaline Phosphatase 73 39 - 117 U/L [facility] 04/29/2025 2:25 AM EDT 04/29/2025 2:27 AM EDT us Generic External Data Provider LAB BLOOD ORDERAB LES Final Result [facility] [address] [place] [phone] from Last 3 Months Insurance STANDARD Care Teams Product Evangelist Relationship Specialty Start Date End Date Lidia Corona ANP [address] [place] [phone] PCP - General Family Medicine 08/05/23
== END 2025-06-22 16:11 | disposition home or self-care (01) ==
LOC: HO.HHCLNP 16:10
PROVIDERS: Visit Provider Nurse Practitioner Primary Care
DX: I10 Essential (primary) hypertension (principal); E11.69 Type 2 diabetes mellitus with other specified complication; E78.5 Hyperlipidemia, unspecified
CPT/HCPCS: 82043; 82570